=== PATIENT | female | born 1985 | race Caucasian/White ===

== ENCOUNTER 2022-07-13 10:36 | Emergency (ER) | payer OTHER, SELFPAY ==
[2022-07-13 10:48] VITALS: BP 112/73; PULSE 95; RESP 20; TEMP 37.2; O2SAT 99
--- NOTE | 2022-07-13 11:12 | CRLHL7_ITS ---
For Patients: As a result of the Century Cures Act, medical imaging exams and procedure reports are released immediately into your electronic medical record. You may view this report before your referring provider. If you have questions, please contact your health care provider. INDICATION: First trimester bleeding. TECHNIQUE: Ultrasound OB pelvis transvaginal. Real-time george-scale imaging of the pelvis was performed. COMPARISON: None. FINDINGS: There is a single intrauterine gestation. The embryo demonstrates a regular cardiac rate measuring 150 beats per minute. The embryo`s crown rump length measurement of 1.2 cm corresponds to a gestational age of 7 weeks 3 days with a sonographic due date of 02/26/2023. There is a normal appearing yolk sac. There are no gross abnormalities noted within the embryo at this early state of development. The placenta has not yet developed. There is a small perigestational hemorrhage. The ovaries are of normal size. There are no suspicious fluid collections noted in the cul-de-sac. IMPRESSION: Single viable intrauterine with an estimated ultrasound age of 7 weeks 3 days. Small subchorionic hemorrhage present. No other abnormality. Dictated by Reinaldo Velasquez MD @ 07/13/2022 1:05:13 PM (Electronically Signed)
[2022-07-13] MEDS: predniSONE 20 MG TABLET 40 MG PO (11:26)
[2022-07-13] MEDS: diphenhydrAMINE 25 MG CAPSULE 50 MG PO (11:26)
[2022-07-13 12:33] LABS: PCR FLU A Negative PCR FLU A (Negative); PCR FLU B Negative PCR FLU B (Negative); PCR RSV Negative PCR RSV (Negative)
[2022-07-13 13:00] LABS: SARS PCR* Negative SARS-CoV-2 (Negative)
--- NOTE | 2022-07-13 15:19 | ED.SKABFB ---
HPI - Skin/Abscess/Foreign Bdy General Date Seen: 07/13/22 Chief complaint: Skin/Abscess/Foreign Body Stated complaint: Rash Time Seen by Provider: 07/13/22 11:01 Source: patient and family Mode of arrival: ambulatory Limitations: no limitations History of Present Illness HPI narrative: Patient is a 36-year-old female who is 7 weeks with unknown subchorionic bleed, who presents with 2 problems 1. Is vaginal bleeding, she went to [facility], but waited in the waiting room for 2 hours and then came here to [place], she had an ultrasound scheduled for later today is wanting she get an ultrasound. She denies any cramping associated with this. Problem 2.-is hives, she has developed this in the last 24-48 hours, she is on a lot of medications for her IVF including Claritin, low-dose Benadryl on low-dose prednisone. Been on this for months, she has itching, but no problems with any or for usual swallowing, wheezing, or other issues she has never had allergic reaction before denies any history of fevers chills or sweats any recent URI type symptoms are viral illnesses, and no new medications. MD complaint: rash Related Data Previous Rx's Medication Instructions Recorded prednisone 20 mg tablet 20 mg PO BID #10 tabs 07/13/22 Allergies Allergy/AdvReac Type Severity Reaction Status Date / Time Cephalosporins Allergy Verified 07/13/22 10:47 Penicillins Allergy Verified 07/13/22 10:47 Sulfa (Sulfonamide Allergy Verified 07/13/22 10:47 Antibiotics) Review of Systems Status of ROS: Reports: 10 or more systems reviewed and unremarkable except as noted in History and below PFSH PFS Social History Smoking Status: Never smoker Do you use any of these nicotine containing products: None Second hand tobacco smoke exposure: No Non-prescribed substance use: denies use service: No Exam Narrative: Exam Narrative: On examination room 4 she is with her mother she is in no apparent distress, her vital signs are stable, her pupils equal round reactive to light there is no scleral icterus or redness TMs bilaterally are normal oropharynx is normal with no swelling of her oropharynx or her lips or tongue. Her chest is clear bilaterally with no wheezing crackles noted easy respirations, heart sounds no clicks murmurs or gallops, her abdomen is soft there is no guarding no organomegaly, no tenderness to palpation, do not feel a gravid uterus. Extremities are all normal, no swelling, and moves all extremities independently and well. She has urticarial welts noted all over her abdomen, upper chest, and arms, sparing her palms and soles of her feet. They are itchy. Const: Vital Signs, click to edit/add: Vital Signs - 24 hr 07/13/22 10:48 Temperature 99 F Pulse Rate [Pulse Oximeter] 95 Respiratory Rate 20 Blood Pressure [Le ft Upper Arm] 112/73 Pulse Oximetry 99 Oxygen Delivery Me thod Room Air Course Course Hospital Course: She received prednisone here and some Benadryl, explained to her about the cause of this which remains elusive at this time, might be related to her medications, we will increase her prednisone to 40 mg a day from the 10 mg she is currently taking, and allow this to be directed by her IVF people. Will use Benadryl also 25-50 mg t.i.d. as needed for the itching, I gave her copy of her ultrasound report. Vital Signs Vital signs: Initial Vital Signs Temperature 99 F 07/13/22 10:48 Temperature Source Temporal Artery Scan 07/13/22 10:48 Pulse Rate 95 07/13/22 10:48 Pulse Rhythm 07/13/22 10:48 Respiratory Rate 20 07/13/22 10:48 Blood Pressure 112/73 07/13/22 10:48 Blood Pressure Mean 86 07/13/22 10:48 Blood Pressure Position Sitting 07/13/22 10:48 Pulse Oximetry 99 07/13/22 10:48 Oxygen Delivery Method 07/13/22 10:48 Vital Signs Temperature 99 F 07/13/22 10:48 Pulse Rate 95 07/13/22 10:48 Respiratory Rate 20 07/13/22 10:48 Blood Pressure 112/73 07/13/22 10:48 Pulse Oximetry 99 07/13/22 10:48 Oxygen Delivery Method 07/13/22 10:48 Temperature 99 F 07/13/22 10:48 Pulse Rate 95 07/13/22 10:48 Respiratory Rate 20 07/13/22 10:48 Blood Pressure 112/73 07/13/22 10:48 Pulse Oximetry 99 07/13/22 10:48 Oxygen Delivery Method 07/13/22 10:48 MDM - Skin/Abscess/Foreign Bdy MDM Narrative Medical decision making narrative: Differential diagnosis include but are not limited to contact dermatitis, allergic reaction, shingles, impetigo, seborrheic dermatitis, Adal Derick syndrome, ITP, meningococcus, HSP Medical Records Attestation: I reviewed the patient's medical records. Lab Data Attestation: I reviewed the patient's lab results. Labs: Lab Results 07/13/22 Range/Units 11:25 SARS-CoV-2 (PCR) Negative SARS-CoV-2 (Negative) Influenza Type A (PCR) Negative PCR FLU A (Negative) Influenza Type B (PCR) Negative PCR FLU B (Negative) RSV (PCR) Negative PCR RSV (Negative) Imaging Data Pelvic ultrasound: Radiologist's impression: Patient: GIUSEPPE RED Facility:?[facility] Patient ID:?[id number] Site Patient [id number]:?[id number]. Site :?[id number] Study:? OB Pelvis -07/13/2022 12:00:51 PM Ordering Physician:Analy Dia Final Report: INDICATION: First trimester bleeding. TECHNIQUE: Ultrasound OB pelvis transvaginal. Real-time george-scale imaging of the pelvis was performed. COMPARISON: None. FINDINGS: There is a single intrauterine gestation. The embryo demonstrates a regular cardiac rate measuring 150 beats per minute. The embryo`s crown rump length measurement of 1.2 cm corresponds to a gestational age of 7 weeks 3 days with a sonographic due date of 02/26/2023. There is a normal appearing yolk sac. There are no gross abnormalities noted within the embryo at this early state of development. The placenta has not yet developed. There is a small perigestational hemorrhage. The ovaries are of normal size. There are no suspicious fluid collections noted in the cul-de-sac. IMPRESSION: Single viable intrauterine with an estimated ultrasound age of 7 weeks 3 days. Small subchorionic hemorrhage present. No other abnormality. Dictated by Reinaldo Velasquez MD @ 07/13/2022 1:05:13 PM (Electronic Signature) Discharge Plan Discharge Clinical Impression: Subchorionic bleed, Urticaria Patient Disposition: Home w/ Parent or Adult Condition: Stable Instructions: Urticaria (ED) Additional Instructions: Home rest use of Benadryl 25-50 mg t.i.d. as needed for the itching, we will increase the prednisone to 40 mg a day, for the next 5 days. Hold off on your normal prednisone and then contact your IVF specialist if they think it tapers needed. Consider allergy testing if ongoing signs and symptoms. Activity Level: No Restrictions Prescriptions: New prednisone 20 mg tablet 20 mg PO BID Qty: 10 0RF Follow Up/Referrals: Provider,Not a Local [Primary Care Provider] - Stand Alone Forms: [employer] Info Instructions
== END 2022-07-13 13:18 | disposition home or self-care (01) ==
PROVIDERS: Emergency Provider Family Medicine
DX: O45.91 Premature separation of placenta, unspecified, first trimester (principal); L50.9 Urticaria, unspecified
CPT/HCPCS: 76817; 87502; 87634; 87635; 99283; 99284; A9270; J7512